=== PATIENT | female | born 1975 | race Caucasian/White ===

== ENCOUNTER → 2020-12-12 | Outpatient (CLI) | payer MEDICARE, OTHER ==
--- NOTE | 2020-12-13 06:45 | MR ---
EXAMINATION TYPE: MR brain wo/w con DATE OF EXAM: 12/12/2020 COMPARISON: 02/28/2018 HISTORY: Altered mental status, nausea, feel like passing out, unsteady, and history of lung cancer. CONTRAST: Standard multiplanar, multisequence MRI departmental protocol utilizing 6 mL intravenous Gadavist demetrius olinium contrast. Diffusion images show no evidence of an acute infarct. The ventricles have normal size. There is no m ass effect nor midline shift. There is no sign of intracranial hemorrhage. Lester-white matter structur es have overall fairly normal signal pattern. There is no evidence of cerebral edema. The brainstem i s intact. There is no evidence of orbital mass. There is no evidence of posterior fossa mass. Sella t urcica appears normal. Corpus callosum appears intact. There is normal enhancement of the venous sinuses. There is no pathologic intracranial enhancement. O ptic chiasm appears normal. IMPRESSION: Normal MR scan of the brain. No adverse change compared to old exam.
== END | disposition home or self-care (01) ==
LOC: RADMRIMAIN 14:41
PROVIDERS: ATTEND Internal Medicine Hematology & Oncology
DX: R41.82 Altered mental status, unspecified (principal)
CPT/HCPCS: 70553; A9585

== ENCOUNTER 2021-04-17 09:49 | Emergency (ER) | payer MEDICARE, OTHER ==
[2021-04-17 09:57] VITALS: RESP 18
--- NOTE | 2021-04-17 10:29 | XR ---
EXAMINATION TYPE: XR chest 2V DATE OF EXAM: 04/17/2021 COMPARISON: CT chest from outside institution 10/09/2019 HISTORY: Cough, congestion and shortness of breath TECHNIQUE: Frontal and lateral views of the chest are obtained. FINDINGS: There is abnormal density, spiculated appearance projecting in the suprahilar region on th e left, possibly left upper lobe. No evident pneumothorax or pleural effusion. Heart size is small. P revious identified right upper lobe nodule seen on CT is not identified with certainty on plain film. IMPRESSION: Possible left lung mass, correlate for pneumonia, follow-up chest x-ray following therap y or chest CT for increased sensitivity is recommended. Patient with underlying emphysema.
[2021-04-17] MEDS ORDERED: SODIUM CHLORIDE 0.9% 1,000 ML IV ONE (10:39)
[2021-04-17] MEDS ORDERED: ACETAMINOPHEN TAB 325 MG TAB PO STA (10:39)
--- NOTE | 2021-04-17 11:03 | ED ---
General Adult HPI - General Chief complaint: Upper Respiratory Infection Stated complaint: fever, cough, SOB Time Seen by Provider: 04/17/21 10:00 Source: patient, RN notes reviewed Mode of arrival: ambulatory Limitations: no limitations - History of Present Illness Initial comments: 46-year-old female presented to emergency department with chief complaint of shortness breath. Patient states she's been sick for last week with cough congestion fever bodyaches. Patient was seen in urgent care sent here for further evaluation. Patient states he has 3 years remission from lung cancer. He states he has had recent follow-up with oncology. Patient denies any chest pain. She has no history DVT or PE patient denies any nausea vomiting diarrhea constipation patient offers no complaints. - Related Data Home Medications Medication Instructions Recorded Confirmed ALPRAZolam [Xanax] 0.25 mg PO BID PRN 04/17/21 04/17/21 Gabapentin [Neurontin] 300 mg PO HS 04/17/21 04/17/21 Venlafaxine HCl [Effexor XR] 150 mg PO HS 04/17/21 04/17/21 rOPINIRole HCL [Requip] 0.5 mg PO HS 04/17/21 04/17/21 rOPINIRole HCL [Requip] 1 mg PO HS 04/17/21 04/17/21 Previous Rx's Medication Instructions Recorded Azithromycin [Zithromax Z-pack (6 0 mg PO DIRECTED #1 packet 04/17/21 tabs)] Allergies Allergy/AdvReac Type Severity Reaction Status Date / Time No Known Allergies Allergy Verified 04/17/21 11:16 Review of Systems ROS Statement: Those systems with pertinent positive or pertinent negative responses have been documented in the HPI. ROS Other: All systems not noted in ROS Statement are negative. Past Medical History Past Medical History: Cancer History of Any Multi-Drug Resistant Organisms: None Reported Past Surgical History: No Surgical Hx Reported Past Psychological History: No Psychological Hx Reported Smoking Status: Former smoker Past Alcohol Use History: None Reported Past Drug Use History: None Reported, Marijuana General Exam Limitations: no limitations General appearance: alert, in no apparent distress Head exam: Present: atraumatic, normocephalic, normal inspection Eye exam: Present: normal appearance, PERRL, EOMI. Absent: scleral icterus, c onjunctival injection, periorbital swelling ENT exam: Present: normal exam, normal oropharynx, mucous membranes moist Neck exam: Present: normal inspection, full ROM. Absent: tenderness, meningismus, lymphadenopathy Respiratory exam: Present: rhonchi. Absent: normal lung sounds bilaterally, respiratory distress, wheezes, rales, stridor Cardiovascular Exam: Present: normal rhythm, tachycardia, normal heart sounds. Absent: systolic murmur, diastolic murmur, rubs, gallop, clicks GI/Abdominal exam: Present: soft, normal bowel sounds. Absent: distended, tenderness, guarding, rebound, rigid Course Vital Signs 04/17/21 04/17/21 09:54 10:25 Temperature 98.5 F Pulse Rate 112 H Respiratory 18 18 Rate Blood Pressure 108/79 O2 Sat by Pulse 98 Oximetry Medical Decision Making - Medical Decision Making Patient presented for cough congestion fever for one week. Patient did have elevated heart rate and risk factor for PE. Patient CT does not show PE shows stable lung mass that was on her CT from last year. Patient will be discharged with antibiotics for early pneumonia return parameters discussed. - Lab Data Result diagrams: 04/17/21 10:55 04/17/21 10:55 Lab Results 04/17/21 04/17/21 04/17/21 Range/Units 10:08 10:55 10:55 WBC 13.8 H (3.8-10.6) k/uL RBC 5.46 H (3.80-5.40) m/uL Hgb 17.3 H (11.4-16.0) gm/dL Hct 51.4 H (34.0-46.0) % MCV 94.1 (80.0-100.0) fL MCH 31.7 (25.0-35.0) pg MCHC 33.7 (31.0-37.0) g/dL RDW 12.4 (11.5-15.5) % Plt Count 305 (150-450) k/uL MPV 7.9 Neutrophils % 79 % Lymphocytes % 12 % Monocytes % 5 % Eosinophils % 2 % Basophils % 1 % Neutrophils # 10.9 H (1.3-7.7) k/uL Lymphocytes # 1.6 (1.0-4.8) k/uL Monocytes # 0.7 (0-1.0) k/uL Eosinophils # 0.3 (0-0.7) k/uL Basophils # 0.1 (0-0.2) k/uL Sodium 138 (137-145) mmol/L Potassium 4.5 (3.5-5.1) mmol/L Chloride 104 (98-107) mmol/L Carbon Dioxide 28 (22-30) mmol/L Anion Gap 6 mmol/L BUN 8 (7-17) mg/dL Creatinine 0.63 (0.52-1.04) mg/dL Est GFR (CKD-EPI)AfAm >90 (>60 ml/min/1.73 sqM) Est GFR (CKD-EPI)NonAf >90 (>60 ml/min/1.73 sqM) Glucose 102 H (74-99) mg/dL Plasma Lactic Acid Boris (0.7-2.0) mmol/L Calcium 10.1 (8.4-10.2) mg/dL Total Bilirubin 0.6 (0.2-1.3) mg/dL AST 33 (14-36) U/L ALT 25 (4-34) U/L Alkaline Phosphatase 117 (38-126) U/L Total Protein 7.8 (6.3-8.2) g/dL Albumin 4.3 (3.5-5.0) g/dL Coronavirus (PCR) Not Detected (Not Detectd) 04/17/21 Range/Units 10:55 WBC (3.8-10.6) k/uL RBC (3.80-5.40) m/uL Hgb (11.4-16.0) gm/dL Hct (34.0-46.0) % MCV (80.0-100.0) fL MCH (25.0-35.0) pg MCHC (31.0-37.0) g/dL RDW (11.5-15.5) % Plt Count (150-450) k/uL MPV Neutrophils % % Lymphocytes % % Monocytes % % Eosinophils % % Basophils % % Neutrophils # (1.3-7.7) k/uL Lymphocytes # (1.0-4.8) k/uL Monocytes # (0-1.0) k/uL Eosinophils # (0-0.7) k/uL Basophils # (0-0.2) k/uL Sodium (137-145) mmol/L Potassium (3.5-5.1) mmol/L Chloride (98-107) mmol/L Carbon Dioxide (22-30) mmol/L Anion Gap mmol/L BUN (7-17) mg/dL Creatinine (0.52-1.04) mg/dL Est GFR (CKD-EPI)AfAm (>60 ml/min/1.73 sqM) Est GFR (CKD-EPI)NonAf (>60 ml/min/1.73 sqM) Glucose (74-99) mg/dL Plasma Lactic Acid Boris 0.9 (0.7-2.0) mmol/L Calcium (8.4-10.2) mg/dL Total Bilirubin (0.2-1.3) mg/dL AST (14-36) U/L ALT (4-34) U/L Alkaline Phosphatase (38-126) U/L Total Protein (6.3-8.2) g/dL Albumin (3.5-5.0) g/dL Coronavirus (PCR) (Not Detectd) - EKG Data -: EKG Interpreted by Me EKG Comments: EKG performed at 10:35 normal sinus rhythm rate of 98 MN 140 QRS 84 QT status QTC 364/445 Disposition Clinical Impression: Pneumonia Disposition: HOME SELF-CARE Condition: Stable Instructions (If sedation given, give patient instructions): Bacterial Pneumonia (ED) Additional Instructions: Please return to the Emergency Department if symptoms worsen or any other concerns. Prescriptions: Azithromycin [Zithromax Z-pack (6 tabs)] 0 mg PO DIRECTED #1 packet Is patient prescribed a controlled substance at d/c from ED?: No Referrals: Genet Alcantar MD [Primary Care Provider] - 1-2 days Time of Disposition: 12:02
[2021-04-17 11:32] LABS: Basophils # (A) 0.1 k/uL (0-0.2); Basophils % (A) 1 %; Eosinophils # (A) 0.3 k/uL (0-0.7); Eosinophils % (A) 2 %; HCT 51.4 % (34.0-46.0); HGB 17.3 gm/dL (11.4-16.0); Lymphocytes # (A) 1.6 k/uL (1.0-4.8); Lymphocytes % (A) 12 %; MCH 31.7 pg (25.0-35.0); MCHC 33.7 g/dL (31.0-37.0); MCV 94.1 fL (80.0-100.0); Mean Platelet Volume 7.9; Monocytes # (A) 0.7 k/uL (0-1.0); Monocytes % (A) 5 %; Neutrophils # (A) 10.9 k/uL (1.3-7.7); Neutrophils % (A) 79 %; Platelet Count 305 k/uL (150-450); RBC 5.46 m/uL (3.80-5.40); RDW 12.4 % (11.5-15.5); WBC 13.8 k/uL (3.8-10.6)
--- NOTE | 2021-04-17 11:37 | CT ---
EXAMINATION TYPE: CT chest angio for PE DATE OF EXAM: 04/17/2021 COMPARISON: Radiograph same day and prior CT chest 10/09/2019 HISTORY: 46-year-old female Shortness of breath, cough, fever. TECHNIQUE: Contiguous axial scanning of the chest performed with IV Contrast, patient injected with 1 00 mL of Isovue 370. Coronal/sagittal MIP reconstructions performed. CT DLP: 206.6 mGycm Automated exposure control for dose reduction was used. FINDINGS: Areas of nodularity in the right breast should be further assessed with diagnostic mammographic ana p. Nodularity measures up to 1 cm, for example, axial images 56, 61, 69, and 72. Heart normal size with trace pericardial fluid. There is no flattening of the interventricular septum . However, there is prominent reflux of contrast into the hepatic veins. Ectatic aortic root at 3.6 cm. Bovine configuration to the aortic arch. Right suprahilar soft tissue measures 2.4 x 1.3 cm versus 1.7 x 1.2 cm, previously. Follow-up recomme nded to exclude neoplasm. Some nodular soft tissue in the AP window may be slightly increased from 10/09/2019. This should be dave ssessed at short interval follow-up, axial image 62. Satisfactory opacification of the pulmonary artery system without evidence for pulmonary embolus. There is moderate to advanced upper lung predominant centrilobular emphysema. Scattered areas of pleu ral parenchymal scarring are present, such as in the anterior right upper lobe. Subpleural mass anterior left upper lobe measures up to 3.0 x 1.6 cm versus 3.2 x 1.9 cm, previously on 10/09/2019. Some of the adjacent patchy opacity along the inferior margin, for example, axial image 77 appears in creased. 7 mm left lower lobe pulmonary nodule versus 6 mm, previously, axial image 121. Some subtle tree-in-bud opacities periphery of the right lower lobe, for example, axial image 131. Visualized upper abdomen shows no gross abnormality. There is variant direct takeoff of a common trun k of the splenic artery and left gastric artery directly from the aorta. Bones: No osseous destructive process. IMPRESSION: 1. NO EVIDENCE FOR PULMONARY EMBOLUS. 2. COPD WITH MODERATE TO ADVANCED EMPHYSEMA ESPECIALLY IN THE UPPER LUNGS. A 3.0 CM SUBPLEURAL MASS A NTERIOR LEFT UPPER LOBE APPEARS RELATIVELY SIMILAR COMPARED TO 10/09/2019. CORRELATE FOR ANY ONCOLOGIC HISTORY IN THIS PATIENT. 3. HOWEVER, PATCHY OPACITY ALONG THE INFERIOR MARGIN OF THE MASS IS INCREASED AND COULD REPRESENT PNE UMONIA. THREE-MONTH FOLLOW-UP RECOMMENDED TO ENSURE CLEARANCE. 4. A 7 MM LEFT LOWER LOBE PULMONARY NODULE PREVIOUSLY MEASURED 6 MM AND SHOULD ALSO BE REASSESSED AT FOLLOW-UP. SOME TREE-IN-BUD OPACITY IN THE RIGHT LOWER LOBE COULD REPRESENT BRONCHIOLITIS. 5. DIAGNOSTIC MAMMOGRAPHIC WORKUP FOR RIGHT BREAST NODULARITY IF ROUTINE SCREENING IS NOT BEING PERFO RMED.
[2021-04-17 11:43] LABS: ALT 25 U/L (4-34); AST 33 U/L (14-36); African American GFR (CKD) >90 (>60 ml/min/1.73 sqM); Albumin 4.3 g/dL (3.5-5.0); Alkaline Phosphatase 117 U/L (38-126); Anion Gap 6 mmol/L; Blood Urea Nitrogen 8 mg/dL (7-17); Calcium 10.1 mg/dL (8.4-10.2); Carbon Dioxide 28 mmol/L (22-30); Chloride 104 mmol/L (98-107); Glucose 102 mg/dL (74-99); Non-African American GFR(CKD) >90 (>60 ml/min/1.73 sqM); Sodium 138 mmol/L (137-145); Total Bilirubin 0.6 mg/dL (0.2-1.3); Total Protein 7.8 g/dL (6.3-8.2)
[2021-04-17 11:49] LABS: Potassium 4.5 mmol/L (3.5-5.1)
[2021-04-17] MEDS ORDERED: cefTRIAXone IN SWFI 1,000 MG/10 ML SYRINGE IVP STA (11:59)
[2021-04-17] MEDS ORDERED: AZITHROMYCIN 250 MG TAB PO STA (11:59)
[2021-04-17 12:20] VITALS: BP 129/75; PULSE 93; TEMP 97.6
== END 2021-04-17 12:12 | disposition home or self-care (01) ==
LOC: EC 09:49
DX: J18.9 Pneumonia, unspecified organism (principal); Z87.891 Personal history of nicotine dependence; Z20.822 Contact with and (suspected) exposure to COVID-19
CPT/HCPCS: 36415; 93005; 80053; 83605; 85025; 87635; 71046; 71275; 99285; 96374; 96361; J0696; Q9967

== ENCOUNTER → 2022-02-09 | Outpatient (CLI) | payer MEDICARE, OTHER ==
--- NOTE | 2022-02-09 16:18 | MR ---
MRI of pelvis with and without contrast. HISTORY: Pelvic mass. This is a follow-up study. COMPARISON: 11/02/2019. TECHNIQUE: Multiecho multiplanar images of the pelvis were obtained with and without contrast. FINDINGS: There is a presacral well circumscribed solid mass measuring 7.0 x 6.5 x 6.4 cm with slight heterogeneity in signal and no significant contrast enhancement. Advise to the right of midline in t he presacral space. It was seen on the prior study and is unchanged. Given the well-circumscribed mar gin, lack of enhancement and no interval change in size since the prior study of 11/02/2019 is most li brittanie a benign abnormality possibly a dermoid or epidermoid. If there is any clinical suspicion for ma lignancy. It is amenable to CT-guided biopsy. The remainder the pelvis is unremarkable. The urinary bladder, rectum and uterus are normal. Pelvic a denopathy. The bowel loops are normal. The osseous structures are intact. IMPRESSION: Stable solid presacral mass to the right of midline as described above.
== END | disposition home or self-care (01) ==
LOC: RADMRIMAIN 14:49
PROVIDERS: ATTEND Obstetrics & Gynecology
DX: R19.00 Intra-abdominal and pelvic swelling, mass and lump, unspecified site (principal)
CPT/HCPCS: 72197; A9585

== ENCOUNTER → 2024-08-24 | Outpatient (CLI) | payer MEDICARE, OTHER ==
--- NOTE | 2024-08-20 11:17 | MM ---
Reason for Exam: Follow-up at short interval from prior study. Patient History: Menarche at age 12. First Full-Term at age 18. Postmenopausal. Other cancer, age 43. Previous chest radiation therapy at age 43. Previous chemotherapy at age 43. 02/17/2009, Benign Excisional Biopsy on the left side. 02/16/2009, Cancelled Left Mammotome on the left side. Risk Values: Amairani 5 year model risk: 0.8%. NCI Lifetime model risk: 7.7%. Prior Study Comparison: No prior studies available for comparison. Tissue Density: The breasts are heterogeneously dense, which may obscure small masses. Findings: Analyzed By CAD. There is a 1.1 cm mass upper outer quadrant right breast 7 cm from the nipple. Additional nodule is noted upper outer quadrant right breast 4 cm from the nipple measuring 5 mm in size. Ultrasound is recommended. There is postoperative distortion of the left breast. Overall Assessment: Incomplete: need additional imaging evaluation, BI-RAD 0 Management: Diagnostic Breast Ultrasound of the right breast. . Results were given to the patient verbally at the time of exam. Patient should continue monthly self-breast exams. A clinical breast exam by your physician is recommended on an annual basis. This exam should not preclude additional follow-up of suspicious palpable abnormalities. Note on Amairani scores and lifetime risk: 1. A Amairani score greater than 3% is considered moderate risk. If this is the case, consider specialist referral to assess eligibility for a risk reducing agent. 2. If overall lifetime risk for the development of breast cancer is 20% or higher, the patient may qualify for future screening with alternating mammogram and breast MRI. [facility], , 08/20/2024 11:13 AM. Electronically signed and approved by: Moisés Castillo M.D. Radiologis
--- NOTE | 2024-08-20 12:08 | USB ---
Reason for Exam: Additional evaluation requested from abnormal screening. Patient History: Menarche at age 12. First Full-Term at age 18. Postmenopausal. Other cancer, age 43. Previous chest radiation therapy at age 43. Previous chemotherapy at age 43. 02/17/2009, Benign Excisional Biopsy on the left side. 02/16/2009, Cancelled Left Mammotome on the left side. Risk Values: Amairani 5 year model risk: 0.8%. NCI Lifetime model risk: 7.7%. Findings: The upper outer quadrant of the right breast, the axilla of the right breast and the retroareolar of the right breast were scanned. Cystic lesion of the right breast 9:00 position 4 cm from the nipple measuring 4 x 4 millimeters. Additionally elongate cystic lesion noted of the right 10:00 position 7 cm from the nipple measuring 6 x 3 mm. No solid mass is detected. Six-month follow-up advised. Overall Assessment: Probably benign, BI-RAD 3 Management: Diagnostic Breast Ultrasound of the right breast in 6 months. A clinical breast exam by your physician is recommended on an annual basis and results should be correlated with mammographic findings. This exam should not preclude additional follow-up of suspicious palpable abnormalities. Results were given to the patient verbally at the time of exam. [facility], , 08/20/2024 11:59 AM. Electronically signed and approved by: Moisés Castillo M.D. Radiologis
--- NOTE | 2024-08-24 09:38 | CT ---
EXAMINATION TYPE: CT chest w con CT DLP: 295 mGycm, Automated exposure control for dose reduction was used. DATE OF EXAM: 08/24/2024 9:22 AM COMPARISON: CTA chest 04/17/2021 CLINICAL INDICATION:Female, 49 years old with history of Z85.118 PERSONAL HISTORY OF MALIGNANT NEOPLA SM OF; [facility], HX OF LUNG CA. PRIOR ON PACS, TECHNIQUE: Multiple axial images were obtained through the chest following the administration of 100 cc of Isovue 300. . Coronal and sagittal reformats reviewed. FINDINGS: LUNGS/ PLEURA: Advanced centrilobular emphysematous changes. No pleural effusion, pneumothorax, foca l consolidation. Similar linear scarring within the anterior upper lobes. Decreased size of anterior left upper lobe subpleural mass with some reticular scarring are demonstrated. Stable left lower lobe subtle 7.4 mm solid pulmonary nodule (series 4, image 46). No new or enlarging pulmonary nodules. AIRWAY: Patent and unremarkable.. HEART: Size within normal limits. Trace anterior pericardial effusion. No significant coronary artery calcifications. MEDIASTINUM: No mediastinal adenopathy. Decreased size of right hilar lymph node from prior exam now measuring up to 1.2 cm, previously measured up to 2.4 cm. VASCULATURE: No aortic aneurysm. Mild atherosclerotic calcification of the aorta and its branches. N o central pulmonary embolism identified. MUSCULOSKELETAL: No acute osseous abnormalities SOFT TISSUES/LYMPH NODES: Similar size of right lateral breast 3 mm nodular density. Other previously seen nodular densities are not well visualized in today's exam. Probably benign due to stability. LOWER NECK: No significant findings. UPPER ABDOMEN: No significant findings. IMPRESSION: 1. No acute thoracic process. 2. Stable left lower lobe 7 mm pulmonary nodule dating back to 2020 and favored to be benign due to s tability. No new or enlarging pulmonary nodules. 3. Decreased size of anterior left upper lobe subpleural mass with some reticular scarring now demons trated. 4. Decreased size of enlarged right hilar lymph node from prior exam. 5. Advanced COPD changes. [facility], , 08/24/2024 9:35 AM
== END | disposition home or self-care (01) ==
LOC: RADMAMWWP 08-20 10:46 → RADCTMAIN 08:50
PROVIDERS: ATTEND Family Medicine
DX: R93.89 Abnormal findings on diagnostic imaging of other specified body structures (principal); R92.333 Mammographic heterogeneous density, bilateral breasts; J44.9 Chronic obstructive pulmonary disease, unspecified; R91.1 Solitary pulmonary nodule; R59.9 Enlarged lymph nodes, unspecified; Z85.118 Personal history of other malignant neoplasm of bronchus and lung; Z78.0 Asymptomatic menopausal state
CPT/HCPCS: 77066; 77062; 76642; 71260; Q9967

== ENCOUNTER → 2024-09-22 | Outpatient (CLI) | payer MEDICARE, OTHER ==
--- NOTE | 2024-09-22 18:50 | CA ---
Transthoracic Echo Report Name: Francisca Murguia Age: 49 Gender: F : 1975 Exam Date: 09/22/2024 13:50 Exam Location: [facility] Ht (in): 67 Wt (lb): 120 Ordering Physician: Genet Alcantar MD Attending/Referring Phys: Genet Alcantar MD Service Center Coordinator Ashli Loya, [facility] Procedure CPT: Indications: I51.81 TAKOTSUBO SYNDROME Cardiac Hx: Hx of Takotsubo syndrom Technical Quality: Fair Contrast 1: Total Dose (mL): Contrast 2: Total Dose (mL): MEASUREMENTS (Male / Female) Normal Values 2D ECHO LV Diastolic Diameter PLAX 4.5 cm 4.2 - 5.9 / 3.9 - 5.3 cm LV Systolic Diameter PLAX 3.6 cm IVS Diastolic Thickness 0.8 cm 0.6 - 1.0 / 0.6 - 0.9 cm LVPW Diastolic Thickness 0.8 cm 0.6 - 1.0 / 0.6 - 0.9 cm LV Relative Wall Thickness 0.4 RV Internal Dim ED PLAX 3.1 cm LA Systolic Diameter LX 2.4 cm 3.0 - 4.0 / 2.7 - 3.8 cm LV Diastolic Volume MOD BP 56.6 cm??? 67 - 155 / 56 - 104 cm??? LV Systolic Volume MOD BP 35.9 cm??? 22 - 58 / 19 - 49 cm??? LV Ejection Fraction MOD BP 36.5 % >= 55 % LV Cardiac Index MOD BP 999.1 cm???/min???m??? LV Diastolic Volume MOD 4C 59.1 cm??? LV Systolic Volume MOD 4C 39.7 cm??? LV Ejection Fraction MOD 4C 32.8 % LV Cardiac Index MOD 4C 936.3 cm???/min???m??? LV Diastolic Length 4C 6.3 cm LV Systolic Length 4C 6.3 cm LV Diastolic Volume MOD 2C 49.0 cm??? LV Systolic Volume MOD 2C 31.1 cm??? LV Ejection Fraction MOD 2C 36.6 % LV Cardiac Index MOD 2C 865.3 cm???/min???m??? LV Diastolic Length 2C 5.7 cm LV Systolic Length 2C 5.9 cm M-MODE LV Diastolic Diameter MM 4.5 cm 4.2 - 5.9 / 3.9 - 5.3 cm LV Systolic Diameter MM 3.7 cm LV Cardiac Index MM Teich 1609.6 cm???/min???m??? IVS Diastolic Thickness MM 0.6 cm 0.6 - 1.0 / 0.6 - 0.9 cm LVPW Diastolic Thickness MM 0.8 cm 0.6 - 1.0 / 0.6 - 0.9 cm LV Relative Wall Thickness MM 0.3 0.24 - 0.42 / 0.22 - 0.42 LV Mass Index MM 62.1 g/m??? 49 - 115 / 43 - 95 g/m??? Aortic Root Diameter MM 3.0 cm LA Systolic Diameter MM 2.4 cm LA Ao Ratio MM 0.8 DOPPLER AV Peak Velocity 71.4 cm/s AV Peak Gradient 2.0 mmHg AI Peak Velocity 159.8 cm/s AI Peak Gradient 10.2 mmHg AI Pressure Half Time 287.6 ms Mitral E Point Velocity 41.1 cm/s Mitral A Point Velocity 48.1 cm/s Mitral E to A Ratio 0.9 MV Deceleration Time 263.6 ms FINDINGS Left Ventricle Left ventricular ejection fraction is estimated at 25-30 %. Left ventricular cavity size normal. Left ventricular wall thickness normal. Severely reduced global left ventricular systolic function. Right Ventricle Normal right ventricular size. Unable to estimate the right ventricular systolic pressure. Right Atrium Normal right atrial size. No right atrial thrombus or mass seen. Left Atrium Normal left atrial size. No left atrial thrombus or mass present. Mitral Valve Structurally normal mitral valve. No mitral stenosis, regurgitation or prolapse. Aortic Valve Trileaflet aortic valve. No aortic stenosis. Trace aortic regurgitation. Tricuspid Valve Structurally normal tricuspid valve. No tricuspid stenosis, regurgitation or prolapse. Pulmonic Valve Structurally normal pulmonic valve. No pulmonic regurgitation. Pericardium No pericardial effusion. Aorta Normal size aortic root and proximal ascending aorta. CONCLUSIONS Reason for echo: Cardiomyopathy Severely reduced LV systolic function ejection fraction less than 30% Normal RV size and function Previewed by: Dr. Elver Figueroa MD (Electronically Signed) Final Date: 22 Sep 2024 18:50
== END | disposition home or self-care (01) ==
LOC: RADECHMAIN 13:41
PROVIDERS: ATTEND Family Medicine
DX: I51.81 Takotsubo syndrome (principal)
CPT/HCPCS: 93306